=== PATIENT | male | born 1950 | race Caucasian/White ===

== ENCOUNTER 2020-01-23 06:07 | Outpatient (CLI) | payer MEDICARE, OTHER ==
[2020-01-23 16:15] LABS: INR-International Normal Ratio 0.9; PTT 30.4 sec (22.9-36.1); Prothrombin Time 12.5 sec (12.0-14.7)
[2020-01-23 16:18] LABS: Mean Corpuscular HGB CONC 33.6 g/dL (32.0-36.0); Mean Corpuscular Hemoglobin 32.7 pg (27.0-31.0); Mean Corpuscular Volume 97.3 fL (78.0-98.0); Mean Platelet Volume 8.1 fL (7.4-10.4); Platelet Count 178 thou/uL (130-400); RBC Distribution Width 11.8 % (11.5-14.5); Red Blood Cell (RBC) Count 4.58 mill/uL (4.70-6.10); White Blood Cell (WBC) Count 7.5 thou/uL (4.8-10.8)
[2020-01-24 14:01] LABS: SARS-CoV-2 MS2 Positive; SARS-CoV-2 N Gene Negative; SARS-CoV-2 S Gene Negative; SARS-CoV-2 orf1ab Negative
== END 2020-01-23 06:08 | disposition home or self-care (01) ==
LOC: LABBT 06:07
PROVIDERS: ATTEND Neurological Surgery
DX: Z01.812 Encounter for preprocedural laboratory examination (principal); Z11.59 Encounter for screening for other viral diseases; M48.062 Spinal stenosis, lumbar region with neurogenic claudication
CPT/HCPCS: 85027; 85610; 85730; U0003; 87635

== ENCOUNTER 2020-01-26 09:46 | Day surgery (SDC) | payer MEDICARE, OTHER ==
[2020-01-20 11:01] VITALS: BMI 27.1
--- NOTE | 2020-01-25 10:24 | HP ---
REASON FOR HISTORY AND PHYSICAL: Surgery on 01/26/2020, L2-S1 laminectomy, . CHIEF COMPLAINT: Lower back and leg pain, difficulty walking and standing. HISTORY OF PRESENT ILLNESS: Mr. Luna is a 69-year-old male, who is complaining of lower back and bilateral leg pain. His pain has become so severe that he has been unable to walk and stand. He has tried physical therapy and spinal epidural injection, only giving him a few days of relief. Pain has become so unbearable and unable to ambulate, that he is elected to have surgery. I will give him a chance to participate in the things he loves to do. REVIEW OF SYSTEMS: CONSTITUTIONAL: Denies fever or chills. EARS, NOSE, AND THROAT: Denies change in vision or hearing. CARDIAC: Denies chest pain, shortness of breath, or diaphoresis. PULMONARY: Denies shortness of breath, cough, or hemoptysis. GI: Denies abdominal pain, nausea, vomiting, diarrhea, or change in stool formation and consistency. : Denies trouble with urination, frequency of urination, or bloody urine. SKIN: Denies skin rash, bruising, bleeding, or skin masses. MUSCULOSKELETAL: As per history of present illness. NEUROLOGICAL: As per history of present illness. PSYCHOLOGICAL: Denies anxiety, depression, or behavior changes. PAST MEDICAL HISTORY: 1. Arthritis. 2. Lung disease. PAST SURGICAL HISTORY: Denies past surgical history. HOSPITALIZATION: Denies past hospitalization. FAMILY HISTORY: Father , diagnosed with cancer. Mother . SOCIAL HISTORY: Former smoker. Drinks alcohol occasionally. Denies illicit drug use. MEDICATIONS: 1. Simvastatin. 2. Ventolin. 3. Stiolto Respimat. ALLERGIES: NO KNOWN DRUG ALLERGIES. VITAL SIGNS: Weight 189 pounds, height 70 inches. PHYSICAL EXAMINATION: HEENT: Pupils are equal. Extraocular movements are intact. NECK: Soft, supple. No masses are noted. Range of motion is intact and nonpainful. NEUROLOGICAL: Awake, alert, and oriented x3. Memory, attention, fund of knowledge normal. Cranial nerves grossly intact. Gait and station: Normal. Motor exam : No new leg weakness. Sensory exam: Constant stocking distribution numbness in bilateral feet. IMAGING DATA: MRI; severe stenosis at L3-L4, L4-L5. Slight L4-L5 slip. Moderate L3-L4 stenosis and L5-S1. X-ray; flexion-extension stable. ASSESSMENT: Lumbar stenosis with neurogenic claudication. PLAN: Laminectomy L2-L3, L4-5, L5-S1 Stop aspirin 325 mg. Okay to substitute baby aspirin. Preop labs; CBC, PT/PTT, COVID-19. Anesthesia clearance. INFORMED CONSENT: We discussed the indications, risks, benefits, alternatives, and expected results from surgery. The risks discussed included, but were not limited to, bleeding, infection, CSF leak, new nerve damage, weakness, incontinence, cauda equina injury, arachnoiditis, paralysis, ventilator dependency, wheelchair dependency, loss of vision, cardiopulmonary complications of anesthesia, or . Long-term complications discussed included, but were not limited to, spinal instability and future surgery. He understands the risk and is willing to proceed. Job ID: [id number] [facility]
[2020-01-26] MEDS ORDERED: Fentanyl 100 MCG/2 ML VIAL ONE ×2 (09:59→16:34)
[2020-01-26] MEDS ORDERED: Thrombin 5000 UNITS/5 ML VIAL ONE (10:05)
[2020-01-26] MEDS ORDERED: Bupivacaine HCl 0.5%/Epinephrine 1:200,000/PF 30 ml Vial ONE (10:08)
[2020-01-26] MEDS ORDERED: PHENYLEPHRINE-NS 100 MCG/ML 10 ML SYRINGE ONE (11:43)
[2020-01-26] MEDS ORDERED: PROPOFOL 200 MG/20 ML VIAL ONE (11:43)
[2020-01-26] MEDS ORDERED: Ondansetron PF 4 MG/2 ML Vial ONE (11:43)
[2020-01-26] MEDS ORDERED: Lidocaine 1% PF 5 ML VIAL ONE (11:43)
[2020-01-26] MEDS ORDERED: Rocuronium Bromide 10 MG/ML (10ML VIAL) ONE (11:43)
[2020-01-26] MEDS ORDERED: Dexamethasone 20 MG/5 ML VIAL ONE (11:43)
[2020-01-26] MEDS ORDERED: Glycopyrrolate 0.2 MG/ML 5 ML SYRINGE ONE (11:43)
[2020-01-26] MEDS ORDERED: EPHEDRINE 25 MG/5 ML SYRINGE ONE (11:43)
[2020-01-26] MEDS ORDERED: Ketorolac Tromethamine 30 MG/ML VIAL ONE (11:43)
[2020-01-26] MEDS ORDERED: Ondansetron HCl/PF 4 MG/2 ML Vial IVP PRN (14:21)
[2020-01-26] MEDS ORDERED: HYDROmorphone 2 MG/ML VIAL SLOW IVP PRN (14:21)
[2020-01-26] MEDS ORDERED: Promethazine HCl 25 MG/ML VIAL IM PRN (14:21)
[2020-01-26] MEDS ORDERED: Ketorolac Tromethamine 30 MG/ML VIAL IVP PRN (14:21)
[2020-01-26] MEDS ORDERED: Meperidine HCl/PF 25 MG/ML VIAL SLOW IVP PRN (14:21)
[2020-01-26] MEDS ORDERED: Promethazine HCl 25 MG/ML VIAL SLOW IVP PRN (14:21)
[2020-01-26] MEDS ORDERED: HYDROmorphone 2 MG/ML VIAL ONE (15:39)
[2020-01-26] MEDS ORDERED: tiZANidine HCl 4 MG TAB PO PRN (16:00)
[2020-01-26] MEDS ORDERED: Ondansetron PF 4 MG/2 ML Vial IVP PRN (16:00)
[2020-01-26] MEDS ORDERED: Acetaminophen 325 MG TAB PO PRN (16:00)
[2020-01-26] MEDS ORDERED: diphenhydrAMINE 25 MG CAP PO PRN (16:00)
[2020-01-26] MEDS ORDERED: Milk Of Magnesia 30 ML UDCUP PO PRN (16:00)
[2020-01-26] MEDS ORDERED: Bisacodyl 10 MG SUPP PR PRN (16:00)
[2020-01-26] MEDS ORDERED: traMADol HCl 50 MG TAB PO PRN (16:00)
[2020-01-26] MEDS ORDERED: Prochlorperazine 10 MG/2 ML VIAL IM PRN (16:00)
[2020-01-26] MEDS ORDERED: Morphine 2 MG/ML VIAL SLOW IVP PRN (16:00)
[2020-01-26] MEDS ORDERED: Scopolamine 1.5 mg/72 hour Patch TD PRN (16:00)
[2020-01-26] MEDS ORDERED: Tamsulosin HCl 0.4 MG CAP PO PRN (16:00)
[2020-01-26] MEDS ORDERED: Mag-Al 1200 mg/1200 mg/30 ML UDCUP PO PRN (16:00)
[2020-01-26] MEDS ORDERED: CEFAZOLIN 2 GM in Premix Bag 1 BAG IVPB SCH (18:00)
[2020-01-26] MEDS ORDERED: Ketorolac Tromethamine 30 MG/ML VIAL IVP SCH (18:00)
[2020-01-26] MEDS: Sodium Chloride 0.9% 1,000 ML IV SCH (18:45)
[2020-01-26] MEDS: CEFAZOLIN 2 GM in Premix Bag 1 BAG IVPB SCH (19:51)
[2020-01-26] MEDS: Ketorolac Tromethamine 30 MG/ML VIAL IVP SCH (19:51)
--- NOTE | 2020-01-26 20:46 | OP ---
DATE OF PROCEDURE: 01/26/2020 VESSEL SLAGMAN: Frankie Hylton PA-C PREOPERATIVE INDICATION: Treat pain and prevent neurological deterioration. PREOPERATIVE DIAGNOSES: Multilevel critically severe lumbar stenosis with neurogenic claudication. POSTOPERATIVE DIAGNOSES: Multilevel critically severe lumbar stenosis with neurogenic claudication. PROCEDURES PERFORMED: Decompressive laminectomy, medial facetectomy, and foraminotomies L2-L3, L3-L4, L4-L5, and L5-S1. PREOPERATIVE MEDICATIONS: Ancef 2 g IV. DRAIN NUMBER: Zero. DRAIN TYPE: None. DESCRIPTION OF PROCEDURE: The patient was brought to the operating room. General endotracheal anesthesia was induced. The patient was positioned prone on gel filled chest rolls and a lateral fluoro radiograph was used to plan our incision. The lumbar skin was sterilely prepped and draped. We opened a midline incision with a 10 blade knife and we controlled bleeding with bipolar and monopolar cautery. We used monopolar cautery to dissect through subcutaneous tissues to the thoracodorsal fascia. We incised the fascia in the midline and reflected the paraspinal muscles off the spinous process and the lamina of L2, L3, L4, L5, and top of the sacrum. A lateral fluoro radiograph confirmed the levels upon which we were operating. We then removed the spinous processes from L2 through S1 with Adson rongeur and using Kerrison rongeurs, fashioned a laminectomy down the midline. There was significant and severe lateral recess stenosis at each of the interspaces. This required medial facetectomy to decompress the nerve roots as they traversed the interspace on either side and then, we performed foraminotomies as the nerves exited the spine so that a Fuentes ball probe could pass through the lateral recess and out the foramen with each of the nerve roots. We probed the foramina from L2 through S1 bilaterally. We ensured all nerves were decompressed. We then irrigated with bacitracin irrigation. We waxed the bone edges. We infused local anesthetic in the paraspinal muscles. We irrigated once again with bacitracin irrigation and then treated the wound with vancomycin powder. We closed in anatomical layers and we applied a sterile dressing. This was a clean case, no contamination. Job ID: [id number]
[2020-01-26] MEDS ORDERED: Atorvastatin Calcium 20 MG TAB PO SCH (21:00)
[2020-01-27] MEDS: Ketorolac Tromethamine 30 MG/ML VIAL IVP SCH ×2 (01:24→08:14)
[2020-01-27] MEDS: Acetaminophen/Codeine 30-300mg Tablet PO PRN ×2 (03:45→08:14)
[2020-01-27] MEDS: CEFAZOLIN 2 GM in Premix Bag 1 BAG IVPB SCH (03:45)
[2020-01-27] MEDS: Sodium Chloride 0.9% 1,000 ML IV SCH (03:47)
--- NOTE | 2020-01-27 06:55 | PRG ---
DATE OF SERVICE: 01/27/2020 Mr. Luna is one day out from a long segment lumbar decompressive laminectomy with medial facetectomy and foraminotomy. He has better sensation in his legs already. He got up and walked to the bathroom with assistance and he felt the leg pain was much better than before surgery. His back is quite sore. He is getting a breathing treatment this morning and otherwise doing fairly well. His vitals are stable. His neurological examination is good and once he is safe for activities of daily living, he can be discharged. Job ID: [id number]
[2020-01-27] MEDS ORDERED: Prevnar 13-Val Conj/PF 0.5 ML SYRINGE IM ONE (09:00)
[2020-01-27 12:09] VITALS: BP 109/58; TEMP 97.8
== END 2020-01-27 13:20 | disposition home or self-care (01) ==
LOC: SDC 09:46 → SURG A 16:00 → SDC 01-27 13:20
PROVIDERS: ATTEND Neurological Surgery
PROC: 01NB0ZZ Release Lumbar Nerve, Open Approach (ICD-10-PCS; principal; 2020-01-26)
DX: M48.062 Spinal stenosis, lumbar region with neurogenic claudication (principal); M48.07 Spinal stenosis, lumbosacral region; M19.90 Unspecified osteoarthritis, unspecified site; E78.5 Hyperlipidemia, unspecified; J44.9 Chronic obstructive pulmonary disease, unspecified; K59.00 Constipation, unspecified; Z87.891 Personal history of nicotine dependence; Z79.82 Long term (current) use of aspirin; Z79.899 Other long term (current) drug therapy
CPT/HCPCS: 76000; J0670; J0690; J1100; J1170; J1885; J2405; J2704; J3010; J3370; J3490; J7620